=== PATIENT | male | born 1960 | race Caucasian/White ===

== ENCOUNTER 2021-04-03 13:31 | Outpatient (CLI) | payer BC, SELFPAY | END 2021-04-03 13:32 | disposition home or self-care (01) | DX: H91.93 Unspecified hearing loss, bilateral (principal) | CPT/HCPCS: 92557; 92567 ==

== ENCOUNTER 2021-05-19 07:43 | Outpatient (RCR) | payer BC, SELFPAY | END 2021-05-19 23:59 | disposition home or self-care (01) | LOC: ANHAUDIO 07:43 | DX: Z46.1 Encounter for fitting and adjustment of hearing aid (principal) | CPT/HCPCS: V5160; V5260 ==

== ENCOUNTER 2021-12-30 08:26 | Outpatient (RCR) | payer BC, SELFPAY | END 2021-12-30 23:59 | disposition home or self-care (01) | LOC: ANHAUDIO 08:26 | DX: Z46.1 Encounter for fitting and adjustment of hearing aid (principal) | CPT/HCPCS: 99199 ==

== ENCOUNTER 2024-02-02 14:00 | Outpatient (RCR) | payer MEDICARE, MEDICAID, SELFPAY | END 2024-02-21 06:36 | disposition home or self-care (01) | LOC: ANHAUDIO 14:00 | DX: Z46.1 Encounter for fitting and adjustment of hearing aid (principal) | CPT/HCPCS: 99199; V5014 ==

== ENCOUNTER 2024-07-31 14:30 | Outpatient (RCR) | payer MEDICARE, SELFPAY | END 2024-07-31 23:59 | disposition home or self-care (01) | LOC: ANHAUDIO 14:30 | DX: Z46.1 Encounter for fitting and adjustment of hearing aid (principal) | CPT/HCPCS: 92593 ==

== ENCOUNTER 2024-12-27 14:45 | Outpatient (RCR) | payer SELFPAY | END 2024-12-27 23:59 | disposition home or self-care (01) | LOC: ANHAUDIO 14:45 | DX: Z46.1 Encounter for fitting and adjustment of hearing aid (principal) | CPT/HCPCS: 92593 ==